=== PATIENT | male | born 1965 | race Caucasian/White ===

== ENCOUNTER 2016-10-19 16:23 | Inpatient (IN) | payer SELFPAY ==
[~2016-10-19] VITALS: Ht 195.6 cm; Wt 121.3 kg
[~2016-10-19 16:23] MED LIST: BACT800T5 PO; CEPH-460 PO; CLIN150 PO; NORC5TAB PO
[2016-10-19 16:26] VITALS: BP 148/83; PULSE 68; RESP 20; TEMP 98.1; O2SAT 96
[2016-10-19] MEDS ORDERED: LIDOCAINE 1%/EPINEPHrine 1:100,000 SOLN 20 ML VIAL INFIL ONE (18:15)
[2016-10-19] MEDS ORDERED: VANCOMYCIN INJ 1,000 MG in SODIUM CHLOR 0.9% 250 ML INJ 250 ML IV ONE (19:15)
--- NOTE | 2016-10-19 19:28 | PD ---
HPI Chief Complaint: Skin Problem Time Seen by Provider: 19:00 Travel History International Travel<30 days: No Contact w/Intl Traveler<30days: No Traveled to known affect area: No History of Present Illness HPI Patient is a 51-year-old male presenting with infection of the left hand and forearm. He states 5 days prior he had a small little area he thought was a antibiotic the left hand. He came in to be evaluated and was given Bactrim and Keflex. Progressively got worse over the next 2 days and he states abscess- like area formed over the outer aspect of the hand. He return here for wound check and denied he was performed and wound culture sent which is been negative. The Keflex was discontinued and place was patient on clindamycin. He has been taking this for about 36 hours. Reports some improvement but still the pain in the hand has worsened and the abscess is getting larger. He denies weakness or paresthesia or loss of range of motion in the extremity. He denies fever, chills, nausea and vomiting. He denies diabetes and immunocompromised states. Last tetanus given this week. PFSH Past Medical History Diminished Hearing: No Hypertension: Yes (RESOLVED) Sleep Apnea: Yes Past Surgical History Appendectomy: Yes Cholecystectomy: Yes Tonsillectomy: Yes Other Surgery: Yes (GASTRIC BYPASS.) Social History Alcohol Use: No Tobacco Use: No Substance Use: Yes (CANNABIS DAILY ) Allergies-Medications (Allergen,Severity, Reaction): Coded Allergies: No Known Allergies (Verified , 10/19/16) Reported Meds & Prescriptions Reported Meds & Active Scripts Active Eads (Hydrocodone-Acetaminophen) 5-325 mg Tab 1 Tab PO Q6H PRN Cleocin (Clindamycin HCl) 150 Mg Cap 150 Mg PO Q6H 7 Days Bactrim DS (Sulfamethoxazole-Trimethoprim) 800-160 Mg Tab 1 Tab PO BID Review of Systems Except as stated in HPI: all other systems reviewed are Neg Physical Exam Narrative GENERAL: Well-developed and well-nourished adult male in no acute distress. SKIN: Warm and dry. Good turgor without tenting. HEAD: Normocephalic and atraumatic. EYES: PERRL bilaterally, 5mm. EOMI bilaterally. No injection or icterus present. No proptosis. Lids without edema or erythema. ENT: Buccal mucosa pink and moist. Oropharynx free of erythema, tonsillar hypertrophy, masses, swelling, asymmetry and exudates. Uvula midline and airway patent. NECK: Supple, no meningeal signs. Trachea midline, no JVD. No cervical or facial lymphadenopathy. CARDIOVASCULAR: Regular rate and rhythm without murmurs, rubs, clicks or gallops. Radial pulses 2+ bilaterally. Capillary refill less than 2 seconds distal tip of all fingers of left hand. RESPIRATORY: Clear to auscultation bilaterally with symmetrical rise and fall, no distress or use of accessory muscles. GASTROINTESTINAL: Non-tender, non-distended. Normal bowel sounds all 4 quadrants. No masses or organomegaly present. MUSCULOSKELETAL: 6 cm ovoid area of erythema and warmth on the ulnar aspect of the dorsum of the left hand. There is some central fluctuance and surrounding induration. No spontaneous drainage or pointing. There is some associated cellulitis over the dorsum of the hand in the mid to distal forearm without edema. Some warmth in this area. Patient has no point tenderness at the left elbow, left wrist with a MTP joints of the fingers. He has full range of motion in the left elbow, wrist and all fingers of left hand. No gait disturbances. Patient freely moving all four extremities spontaneously. Extremities without clubbing, cyanosis, or edema. No obvious deformities. NEUROLOGIC: CN II-XII grossly intact. Awake and alert. Strength 5/5 bilateral elbow flexion, elbow extension, wrist flexion, wrist extension.Sensation intact and strength 5/5 over radial, median, and ulnar nerve distributions bilaterally. Normal speech. PSYCHIATRIC: Appropriate mood and affect; insight and judgment normal. Data Data Last Documented VS Vital Signs Date Time Temp Pulse Resp B/P Pulse Ox O2 Delivery O2 Flow Rate FiO2 10/19/16 16:26 98.1 68 20 148/83 96 Room Air Orders Wound Culture And Gram Stain (10/19/16 18:12) Lidocai-Epi 1%-1:100,000 Inj (Xylocaine- (10/19/16 18:15) Wound Care (10/19/16 18:12) Complete Blood Count With Diff (10/19/16 19:15) Comprehensive Metabolic Panel (10/19/16 19:15) Prothrombin Time / Inr (Pt) (10/19/16 19:15) Act Partial Throm Time (Ptt) (10/19/16 19:15) Lactic Acid Sepsis Protocol (10/19/16 19:15) Blood Culture (10/19/16 19:15) Vancomycin Inj (Vancomycin Inj) (10/19/16 19:15) Forearm (2vws) (10/19/16 19:29) Hand, Complete ([id number]) (10/19/16 19:29) Westergren Sedimentation Rate (10/19/16 19:29) C-Reactive Protein (Crp) (10/19/16 19:35) Admit Order (Ed Use Only) (10/19/16 21:02) Vancomycin Consult Pharmacy (Vancomycin (10/19/16 21:00) Cefepime Inj (Maxipime Inj) (10/19/16 21:00) Admit To Inpatient (10/19/16 ) Vital Signs (Adult) Q4H (10/19/16 21:00) Activity Oob Ad Zahira (10/19/16 21:00) Diet Regular Basic (10/20/16 Breakfast) Sodium Chloride 0.9% Flush (Ns Flush) (10/19/16 21:00) Sodium Chloride 0.9% Flush (Ns Flush) (10/19/16 21:00) Ondansetron Inj (Zofran Inj) (10/19/16 21:00) Bisacodyl Supp (Dulcolax Supp) (10/19/16 21:00) Comprehensive Metabolic Panel (10/20/16 06:00) Complete Blood Count With Diff (10/20/16 06:00) Scd Bilateral/Knee High SANKET.BID (10/19/16 21:00) Flynn Bilateral/Knee High SANKET.QSHIFT (10/19/16 21:00) Acetaminophen (Tylenol) (10/19/16 21:00) Acetamin-Hydrocod 325-5 Mg (Eads 5-325 (10/19/16 21:00) Morphine Inj (Morphine Inj) (10/19/16 21:00) Inpatient Certification (10/19/16 ) Labs Laboratory Tests Test 10/19/16 19:35 White Blood Count 6.9 TH/MM3 Red Blood Count 4.25 MIL/MM3 Hemoglobin 12.7 GM/DL Hematocrit 37.6 % Mean Corpuscular Volume 88.7 FL Mean Corpuscular Hemoglobin 29.9 PG Mean Corpuscular Hemoglobin 33.7 % Concent Red Cell Distribution Width 14.6 % Platelet Count 223 TH/MM3 Mean Platelet Volume 8.3 FL Neutrophils (%) (Auto) 70.6 % Lymphocytes (%) (Auto) 19.7 % Monocytes (%) (Auto) 7.7 % Eosinophils (%) (Auto) 1.5 % Basophils (%) (Auto) 0.5 % Neutrophils # (Auto) 4.9 TH/MM3 Lymphocytes # (Auto) 1.4 TH/MM3 Monocytes # (Auto) 0.5 TH/MM3 Eosinophils # (Auto) 0.1 TH/MM3 Basophils # (Auto) 0.0 TH/MM3 CBC Comment DIFF FINAL Differential Comment Erythrocyte Sedimentation Rate 20 mm/hr Prothrombin Time 10.8 SEC Prothromb Time International 1.0 RATIO Ratio Activated Partial 31.3 SEC Thromboplast Time Sodium Level 139 MEQ/L Potassium Level 3.7 MEQ/L Chloride Level 103 MEQ/L Carbon Dioxide Level 27.3 MEQ/L Anion Gap 9 MEQ/L Blood Urea Nitrogen 15 MG/DL Creatinine 0.68 MG/DL Estimat Glomerular Filtration 123 ML/MIN Rate Random Glucose 92 MG/DL Lactic Acid Level 0.8 mmol/L Calcium Level 8.8 MG/DL Total Bilirubin 0.4 MG/DL Aspartate Amino Transf 18 U/L (AST/SGOT) Alanine Aminotransferase 26 U/L (ALT/SGPT) Alkaline Phosphatase 81 U/L C-Reactive Protein 2.00 MG/DL Total Protein 7.2 GM/DL Albumin 3.6 GM/DL MDM Medical Decision Making Medical Screen Exam Complete: Yes Emergency Medical Condition: Yes Interpretation(s) Laboratory Tests Test 10/19/16 19:35 White Blood Count 6.9 TH/MM3 (4.0-11.0) Red Blood Count 4.25 MIL/MM3 (4.50-5.90) Hemoglobin 12.7 GM/DL (13.0-17.0) Hematocrit 37.6 % (39.0-51.0) Mean Corpuscular Volume 88.7 FL (80.0-100.0) Mean Corpuscular Hemoglobin 29.9 PG (27.0-34.0) Mean Corpuscular Hemoglobin 33.7 % Concent (32.0-36.0) Red Cell Distribution Width 14.6 % (11.6-17.2) Platelet Count 223 TH/MM3 (150-450) Mean Platelet Volume 8.3 FL (7.0-11.0) Neutrophils (%) (Auto) 70.6 % (16.0-70.0) Lymphocytes (%) (Auto) 19.7 % (9.0-44.0) Monocytes (%) (Auto) 7.7 % (0.0-8.0) Eosinophils (%) (Auto) 1.5 % (0.0-4.0) Basophils (%) (Auto) 0.5 % (0.0-2.0) Neutrophils # (Auto) 4.9 TH/MM3 (1.8-7.7) Lymphocytes # (Auto) 1.4 TH/MM3 (1.0-4.8) Monocytes # (Auto) 0.5 TH/MM3 (0-0.9) Eosinophils # (Auto) 0.1 TH/MM3 (0-0.4) Basophils # (Auto) 0.0 TH/MM3 (0-0.2) CBC Comment DIFF FINAL Differential Comment Erythrocyte Sedimentation Rate 20 mm/hr (0-20) Prothrombin Time 10.8 SEC (9.8-11.6) Prothromb Time International 1.0 RATIO Ratio Activated Partial 31.3 SEC Thromboplast Time (24.3-30.1) Sodium Level 139 MEQ/L (136-145) Potassium Level 3.7 MEQ/L (3.5-5.1) Chloride Level 103 MEQ/L (98-107) Carbon Dioxide Level 27.3 MEQ/L (21.0-32.0) Anion Gap 9 MEQ/L (5-15) Blood Urea Nitrogen 15 MG/DL (7-18) Creatinine 0.68 MG/DL (0.60-1.30) Estimat Glomerular Filtration 123 ML/MIN Rate (>89) Random Glucose 92 MG/DL (74-106) Lactic Acid Level 0.8 mmol/L (0.4-2.0) Calcium Level 8.8 MG/DL (8.5-10.1) Total Bilirubin 0.4 MG/DL (0.2-1.0) Aspartate Amino Transf 18 U/L (15-37) (AST/SGOT) Alanine Aminotransferase 26 U/L (12-78) (ALT/SGPT) Alkaline Phosphatase 81 U/L (45-117) C-Reactive Protein 2.00 MG/DL (0.00-0.30) Total Protein 7.2 GM/DL (6.4-8.2) Albumin 3.6 GM/DL (3.4-5.0) Last 24 hours Impressions Radius/Ulna X-Ray 10/19/161928 Signed Impressions: Service Date/Time: Wednesday, October 19, 2016 19:59 - CONCLUSION: Soft tissue swelling without fracture. Seth Pringle MD Hand X-Ray 10/19/161928 Signed Impressions: Service Date/Time: Wednesday, October 19, 2016 19:57 - CONCLUSION: Soft tissue swelling. No acute fracture. Seth Pringle MD Differential Diagnosis Failure of Outpatient therapy versus osteomyelitis versus Abscess versus cellulitis versus hematoma Narrative Course Patient is a 51-year-old male presenting to the third time in 5 days for a abscess and cellulitis of the left upper extremity. He is afebrile, nontoxic and has no systemic complaints. Despite being placed on Bactrim and Keflex earlier this has worsened. 2 days ago Keflex was discontinued and he was placed on Keflex after I&D and has had some improvement since but not substantially. Culture was negative. Patient is afebrile and nontoxic appearing. He is neurovascularly intact. Tetanus up-to-date. Incision and drainage was performed per attached procedure narrative, minimal pustular drainage however patient achieved significant relief. Wound culture was sent. Sent labs, lactic acid and blood cultures. CBCs shows WBC 6.9 with a mild leukocytosis without bands. H&H 12.7/37.6. Lactic acid 0.8. Sedimentation rate 20. CRP 2.0 which is down from 2 days prior at 4.20. X-ray shows soft tissue edema but no foreign bodies or bony lesions. Discussed the patient with Dr. Singh who evaluated and agrees patient should be admitted for failure of outpatient therapy. Report was given to Dr. Weaver who accepeted the admission. We discussed having her placed a consult for Dr. Barrientos but was not needed emergently. She recommended the patient come here but has not seen or evaluated the patient. She became involved because her colleague a space scheduler is a friend of the patient and called her personally. Within a few minutes of the admission call to Dr. Meg Barrientos did call here seeking the patient's status as she was in the OR last several hours. I explained situation to her and she will follow-up with him routinely. Procedures Procedure Narrative I&D LOCATION: Dorsum left hand SIZE: 6 cm ANESTHESIA: 1 Percent lidocaine with epi PROCEDURE: The abscess was prepped with Betadine and sterilely draped. The abscess was infiltrated with 2 cc of above anesthetic. Incision was made with a #11 blade with length of 2 cm and depth of 6 cm. Expressed mostly bloody material with scant purulence, approximately 7 mL. The wound was copiously irrigated and loculations were broken up. The wound was left open and covered with a sterile dressing. Packing was not done. The patient was advised to keep the dressing clean and dry. Patient tolerated the procedure well. Diagnosis Primary Impression: Hand abscess Additional Impressions: Cellulitis of upper extremity Qualified Code: L03.114 - Cellulitis of left upper extremity Failure of outpatient treatment Admitting Information Admitting Physician Requests: Admit Condition: Stable Collin Segal III Oct 19, 2016 19:28
[2016-10-19 20:03] LABS: APTT (PATIENT) 31.3 SEC (24.3-30.1); PROTHROMBIN TIME - PATIENT 10.8 SEC (9.8-11.6)
[2016-10-19 20:06] LABS: AUTOMATED NEUTROPHIL # 4.9 TH/MM3 (1.8-7.7); BASOPHIL % 0.5 % (0.0-2.0); EOSINOPHIL # 0.1 TH/MM3 (0-0.4); EOSINOPHIL % 1.5 % (0.0-4.0); HEMATOCRIT 37.6 % (39.0-51.0); HEMO FLAGS DIFF FINAL; LYMPH % 19.7 % (9.0-44.0); LYMPHOCYTE # 1.4 TH/MM3 (1.0-4.8); MEAN CELL VOLUME 88.7 FL (80.0-100.0); MEAN CORPUSCULAR HEMOGLOBIN 29.9 PG (27.0-34.0); MEAN CORPUSCULAR HGB CONC 33.7 % (32.0-36.0); MONO % 7.7 % (0.0-8.0); NEUT % 70.6 % (16.0-70.0); PLATELET COUNT 223 TH/MM3 (150-450); RED BLOOD COUNT 4.25 MIL/MM3 (4.50-5.90); RED CELL DISTRIBUTION WIDTH 14.6 % (11.6-17.2); WHITE BLOOD COUNT 6.9 TH/MM3 (4.0-11.0)
--- NOTE | 2016-10-19 20:08 | RADRPT ---
EXAM DATE/TIME: 10/19/2016 19:57 [facility] COMPARISON: No previous studies available for comparison. INDICATIONS : Swelling, pain, redness after bite/sting. MEDICAL HISTORY : None. SURGICAL HISTORY : None. ENCOUNTER: Initial ACUITY: 3 days PAIN SCORE: 10/10 LOCATION: Left Hand FINDINGS: Three view examination of the left hand demonstrates soft tissue swelling without dislocation, or fra cture. The carpal bones appear intact. The interphalangeal and metacarpophalangeal joints are inta ct. Bony mineralization is normal. CONCLUSION: Soft tissue swelling. No acute fracture. Seth Pringle MD on October 19, 2016 at 20:06 Board Certified Radiologist. This report was verified electronically.
--- NOTE | 2016-10-19 20:16 | RADRPT ---
EXAM DATE/TIME: 10/19/2016 19:59 [facility] COMPARISON: No previous studies available for comparison. INDICATIONS : Swelling, pain, redness following bite/sting. MEDICAL HISTORY : None. SURGICAL HISTORY : None. ENCOUNTER: Initial ACUITY: 3 days PAIN SCORE: 10/10 LOCATION: Left Forearm FINDINGS: Two view examination of the left forearm demonstrates no evidence of fracture or dislocation. Bony m ineralization is normal. Diffuse soft tissue swelling. CONCLUSION: Soft tissue swelling without fracture. Seth Pringle MD on October 19, 2016 at 20:14 Board Certified Radiologist. This report was verified electronically.
[2016-10-19 20:17] LABS: ANION GAP 9 MEQ/L (5-15); AST (GOT) 18 U/L (15-37); BICARBONATE 27.3 MEQ/L (21.0-32.0); BLOOD UREA NITROGEN 15 MG/DL (7-18); CHLORIDE 103 MEQ/L (98-107); GLOMERULAR FILTRATION RATE 123 ML/MIN (>89); POTASSIUM 3.7 MEQ/L (3.5-5.1); SODIUM (NA) 139 MEQ/L (136-145)
[2016-10-19 20:20] LABS: ALKALINE PHOSPHATASE 81 U/L (45-117); ALT (GPT) 26 U/L (12-78); TOTAL BILIRUBIN ADULT 0.4 MG/DL (0.2-1.0)
[2016-10-19] MEDS ORDERED: BISACODYL 10 MG SUPP PR PRN (21:00)
[2016-10-19] MEDS ORDERED: Vancomycin Consult Pharmacy 1 EA OTHER SCH (21:00)
[2016-10-19] MEDS ORDERED: SODIUM CHLORIDE 0.9% FLUSH 5 ML FLUSH FLUSH PRN (21:00)
[2016-10-19] MEDS ORDERED: MORPHINE SULFATE 4 MG/ML INJ IV PRN (21:00)
[2016-10-19] MEDS ORDERED: ACETAMINOPHEN 325 MG TAB PO PRN (21:00)
[2016-10-19] MEDS ORDERED: ONDANSETRON HCL 4 MG/2 ML VIAL IVP PRN (21:00)
--- NOTE | 2016-10-19 21:09 | HHI.HP ---
HPI Service [facility] Primary Care Physician No Primary Care Physician Admission Diagnosis L HAND ABSCESS/cellulitis Diagnoses: (1) Cellulitis of hand Diagnosis: Principal (2) Failure of outpatient treatment Diagnosis: Principal (3) HTN (hypertension) Diagnosis: Principal Travel History International Travel<30 Days: No Contact w/Intl Traveler <30 Da: No Traveled to Known Affected Are: No History of Present Illness This is a 51 year old male with a PMH of HTN who came to the ER with complaints of left hand swelling and pain after getting bitten by fire ant 5 days ago. Seen in Er on 10/15/16 for similar complaints, found to have left hand cellulitis and was d/c'd on Keflex 500mg po q8h and Bactrim DS po bid. Presented to ER again on 10/17/16 for same and was d/c'd w/ instructions to start Clinda 150mg q6h and to continue Bactrim. Returns today w/ no improvement. States friend is a Turn Out Worker and referred him to ER for eval w/ Hand Surgery. On arrival, BP 148/83, HR 68, O2 sat 96% on RA, Afebrile. WBC normal. Chemistry unremarkable. Hand X-ray was soft tissue swelling. Radius/ Ulna X-ray with soft tissue swelling, no fracture. S/p Vanc in ER. Review of Systems Other ROS: 14 point review of systems otherwise negative. Past Family Social History Past Medical History PMH: HTN Past Surgical History PAST SURGICAL HISTORY: Appendectomy, Cholecystectomy, Tonsillectomy, Gastric Bypass Allergies: Coded Allergies: No Known Allergies (Verified , 10/19/16) Family History PAST FAMILY HISTORY: Reviewed. No h/o DM or CAD Social History PAST SOCIAL HISTORY: Negative for alcohol or tobacco. Positive for Marijuana. Physical Exam Vital Signs Vital Signs Date Time Temp Pulse Resp B/P Pulse Ox O2 Delivery O2 Flow Rate FiO2 10/19/16 16:26 98.1 68 20 148/83 96 Room Air Physical Exam PE: GENERAL: Middle-aged male in no acute distress. HEENT: PERRLA, EOMI. No scleral icterus or conjunctival pallor. No lid lag or facial droop. CARDIOVASCULAR: Regular rate and rhythm. No obvious murmurs to auscultation. No chest tenderness to palpation. RESPIRATORY: No obvious rhonchi or wheezing. Clear to auscultation. Breath sounds equal bilaterally. GASTROINTESTINAL: Abdomen soft, non-tender, nondistended. BS normal. MUSCULOSKELETAL: Left hand +erythema, edema s/p I&D. Pulses intact NEUROLOGICAL: Awake, alert and oriented x4. No focal neurologic deficits. Moving both upper and lower extremities spontaneously. Laboratory Laboratory Tests Test 10/19/16 19:35 White Blood Count 6.9 Red Blood Count 4.25 Hemoglobin 12.7 Hematocrit 37.6 Mean Corpuscular Volume 88.7 Mean Corpuscular Hemoglobin 29.9 Mean Corpuscular Hemoglobin 33.7 Concent Red Cell Distribution Width 14.6 Platelet Count 223 Mean Platelet Volume 8.3 Neutrophils (%) (Auto) 70.6 Lymphocytes (%) (Auto) 19.7 Monocytes (%) (Auto) 7.7 Eosinophils (%) (Auto) 1.5 Basophils (%) (Auto) 0.5 Neutrophils # (Auto) 4.9 Lymphocytes # (Auto) 1.4 Monocytes # (Auto) 0.5 Eosinophils # (Auto) 0.1 Basophils # (Auto) 0.0 CBC Comment DIFF FINAL Differential Comment Erythrocyte Sedimentation Rate 20 Prothrombin Time 10.8 Prothromb Time International 1.0 Ratio Activated Partial 31.3 Thromboplast Time Sodium Level 139 Potassium Level 3.7 Chloride Level 103 Carbon Dioxide Level 27.3 Anion Gap 9 Blood Urea Nitrogen 15 Creatinine 0.68 Estimat Glomerular Filtration 123 Rate Random Glucose 92 Lactic Acid Level 0.8 Calcium Level 8.8 Total Bilirubin 0.4 Aspartate Amino Transf 18 (AST/SGOT) Alanine Aminotransferase 26 (ALT/SGPT) Alkaline Phosphatase 81 C-Reactive Protein 2.00 Total Protein 7.2 Albumin 3.6 Date/Time Procedure Status Source Growth 10/19/16 19:35 Aerobic Blood Culture Received Blood Peripheral Pending 10/19/16 19:35 Anaerobic Blood Culture Received Blood Peripheral Pending 10/19/16 19:13 Gram Stain Received Wound Hand Pending 10/19/16 19:13 Wound Culture Received Wound Hand Pending Result Diagram: 10/19/16193410/19/161934 Assessment and Plan Problem List: (1) Cellulitis of hand ICD Code: L03.119 Status: Acute (2) Failure of outpatient treatment ICD Code: Z78.9 Status: Acute (3) HTN (hypertension) ICD Code: I10 Status: Acute Assessment and Plan A/P: 1. Left Hand Cellulitis/Abscess: s/p I&D in ER, previous I&D w/ negative cultures. s/p Vanc in ER. Will continue w/ IV Abx, follow up cultures. ER physician spoke w/ Dr. Barrientos, will evaluate in am. 2. Failed Outpt Tx: S/p Keflex/Bactrim 10/15/16, later switched to Bactrim/ Clinda w/ no improvement. S/p Vanc in ER, will continue w/ Vanc/Cefepime IV. 3. HTN: Controlled. Monitor BP. 4. DVT Prophylaxis: SCD/Teds. 5. Social work for d/c planning as needed. 6. Case discussed w/ ER physician at length. Physician Certification 2 Midnight Certification Type: Admission for Inpatient Services Order for Inpatient Services The services are ordered in accordance with Medicare regulations or non- Medicare payer requirements, as applicable. In the case of services not specified as inpatient-only, they are appropriately provided as inpatient services in accordance with the 2-midnight benchmark. Estimated LOS (days): 2 days is the estimated time the patient will need to remain in the hospital, assuming treatment plan goals are met and no additional complications. Post-Hospital Plan: Home Berenice Weaver MD Oct 19, 2016 21:09
[2016-10-19 21:27] VITALS: BP 127/79; PULSE 52; RESP 18; O2SAT 95
[2016-10-19] MEDS ORDERED: VANCOMYCIN 1,000 MG/NS 250 ML IV ONE ×2 (22:00)
[2016-10-19] MEDS: ACETAMINOPHEN/HYDROcodone 325 MG/5 MG TAB PO PRN (23:47)
[2016-10-19] MEDS: CEFEPIME INJ 1,000 MG in SODIUM CHLORIDE 0.9% INJ 100 ML IV SCH (23:48)
[2016-10-20] VITALS: BP 129/80; PULSE 55; RESP 17; TEMP 96.6; O2SAT 98
[2016-10-20 04:00] VITALS: BP 123/81; PULSE 50; RESP 16; TEMP 97.1; O2SAT 96
[2016-10-20 08:00] VITALS: BP 123/78; PULSE 55; RESP 16; TEMP 97.1; O2SAT 97
[2016-10-20] MEDS: SODIUM CHLORIDE 0.9% FLUSH 5 ML FLUSH FLUSH SCH ×3 (09:14→20:30)
[2016-10-20] MEDS: VANCOMYCIN INJ 2,000 MG in SODIUM CHLORID 0.9% 500 ML INJ 500 ML IV SCH ×2 (09:14→20:28)
--- NOTE | 2016-10-20 11:27 | HHI.PR ---
Subjective Remarks Patient admitted with left hand cellulitis/abscess s/p I&D in the ED He reports that the swelling and redness has improved since yesterday. He would like to go home if ok with hand surgeon. Objective Vitals Vital Signs Date Time Temp Pulse Resp B/P Pulse Ox O2 Delivery O2 Flow Rate FiO2 10/20/16 08:00 97.1 55 16 123/78 97 10/20/16 04:00 97.1 50 16 123/81 96 10/20/16 01:16 19 10/20/16 00:00 96.6 55 17 129/80 98 10/19/16 21:27 52 18 127/79 95 Room Air 10/19/16 16:26 98.1 68 20 148/83 96 Room Air I/O 10/19/16 10/19/16 10/19/16 10/20/16 10/20/16 10/20/16 06:59 14:59 22:59 06:59 14:59 22:59 Intake Total 240 ml Balance 240 ml Intake Oral 240 ml # Voids 1 # Bowel Movements 0 Result Diagram: 10/19/16193410/19/161934 Imaging Last Impressions Radius/Ulna X-Ray 10/19/161928 Signed Impressions: Service Date/Time: Wednesday, October 19, 2016 19:59 - CONCLUSION: Soft tissue swelling without fracture. Seth Pringle MD Hand X-Ray 10/19/161928 Signed Impressions: Service Date/Time: Wednesday, October 19, 2016 19:57 - CONCLUSION: Soft tissue swelling. No acute fracture. Seth Pringle MD Objective Remarks GENERAL: This is a well-nourished, well-developed patient, in no apparent distress. SKIN: Left dorsum of the hand on the lateral side there is some redness and swelling. Incision looks clean. Improving per the patient. CARDIOVASCULAR: Regular rate and rhythm without murmurs, gallops, or rubs. RESPIRATORY: Clear to auscultation. Breath sounds equal bilaterally. No wheezes , rales, or rhonchi. GASTROINTESTINAL: Abdomen soft, non-tender, nondistended. Normal active bowel sounds MUSCULOSKELETAL: Extremities without clubbing, cyanosis, or edema. NEURO: Alert & Oriented x4 to person, place, time, situation. Moves all ext x4 A/P Problem List: (1) Cellulitis of hand ICD Code: L03.119 Status: Acute (2) Failure of outpatient treatment ICD Code: Z78.9 Status: Acute (3) HTN (hypertension) ICD Code: I10 Status: Acute Assessment and Plan 51-year-old male with: Left Hand Cellulitis/Abscess: s/p I&D in ER, previous I&D w/ negative cultures. s/p Vanc in ER. Awaiting evaluation from hand surgery, there does not appear to be joint involvement. If cleared by hand surgery today he may be able to go home to continue on oral antibiotics. He is improving. HTN: Controlled. Monitor BP. DVT Prophylaxis: SCD/Teds. Nahid King MD Oct 20, 2016 11:26
[2016-10-20] MEDS: CEFEPIME INJ 1,000 MG in SODIUM CHLORIDE 0.9% INJ 100 ML IV SCH ×2 (11:30→22:40)
[2016-10-20 12:00] VITALS: BP 127/78; PULSE 50; RESP 16; TEMP 97.4; O2SAT 97
[2016-10-20 12:04] LABS: BASOPHIL % 0.8 % (0.0-2.0); EOSINOPHIL # 0.2 TH/MM3 (0-0.4); EOSINOPHIL % 3.6 % (0.0-4.0); HEMATOCRIT 36.8 % (39.0-51.0); HEMO FLAGS DIFF FINAL; LYMPH % 26.8 % (9.0-44.0); LYMPHOCYTE # 1.4 TH/MM3 (1.0-4.8); MEAN CELL VOLUME 88.9 FL (80.0-100.0); MEAN CORPUSCULAR HEMOGLOBIN 29.5 PG (27.0-34.0); MEAN CORPUSCULAR HGB CONC 33.1 % (32.0-36.0); MONO % 10.2 % (0.0-8.0); NEUT % 58.6 % (16.0-70.0); PLATELET COUNT 207 TH/MM3 (150-450); RED BLOOD COUNT 4.14 MIL/MM3 (4.50-5.90); RED CELL DISTRIBUTION WIDTH 14.4 % (11.6-17.2); WHITE BLOOD COUNT 5.2 TH/MM3 (4.0-11.0)
[2016-10-20 12:31] LABS: ALKALINE PHOSPHATASE 74 U/L (45-117); ALT (GPT) 22 U/L (12-78); ANION GAP 10 MEQ/L (5-15); AST (GOT) 13 U/L (15-37); BICARBONATE 25.1 MEQ/L (21.0-32.0); BLOOD UREA NITROGEN 10 MG/DL (7-18); CHLORIDE 106 MEQ/L (98-107); GLOMERULAR FILTRATION RATE 134 ML/MIN (>89); SODIUM (NA) 141 MEQ/L (136-145); TOTAL BILIRUBIN ADULT 0.7 MG/DL (0.2-1.0)
[2016-10-20 16:00] VITALS: BP 126/74; PULSE 53; RESP 16; TEMP 98.2; O2SAT 98
--- NOTE | 2016-10-20 18:57 | PD.ORT.PN ---
Subjective Subjective Remarks See dicatated consult note Objective Vitals Vital Signs Date Time Temp Pulse Resp B/P Pulse Ox O2 Delivery O2 Flow Rate FiO2 10/20/16 16:00 98.2 53 16 126/74 98 10/20/16 12:00 97.4 50 16 127/78 97 10/20/16 08:00 97.1 55 16 123/78 97 10/20/16 04:00 97.1 50 16 123/81 96 10/20/16 01:16 19 10/20/16 00:00 96.6 55 17 129/80 98 10/19/16 21:27 52 18 127/79 95 Room Air I/O 10/19/16 10/19/16 10/19/16 10/20/16 10/20/16 10/20/16 06:59 14:59 22:59 06:59 14:59 22:59 Intake Total 240 ml 720 ml Balance 240 ml 720 ml Intake Oral 240 ml 720 ml # Voids 1 4 # Bowel Movements 0 1 Result Diagram: 10/20/16 1102 10/20/16 1102 Other Results Laboratory Tests Test 10/19/16 19:35 Prothrombin Time 10.8 SEC (9.8-11.6) Prothromb Time International 1.0 RATIO Ratio Imaging Last 24 hours Impressions Radius/Ulna X-Ray 10/19/161928 Signed Impressions: Service Date/Time: Wednesday, October 19, 2016 19:59 - CONCLUSION: Soft tissue swelling without fracture. Seth Pringle MD Hand X-Ray 10/19/161928 Signed Impressions: Service Date/Time: Wednesday, October 19, 2016 19:57 - CONCLUSION: Soft tissue swelling. No acute fracture. Seth Pringle MD Assessment & Plan Assessment and Plan 51yM s/p gastric bypass with abscess dorsum left hand s/p I&D in ER -Recommend continued admission for IV Ab, consultation infectious disease -Likely d/c on oral antibiotics with close followup, likely followup Tue in office Melonie Barrientos MD Oct 20, 2016 18:57
--- NOTE | 2016-10-20 19:12 | MB ---
cc: CHRISTIANO AGUAYO MD DATE OF CONSULTATION: 10/20/2016. REASON FOR CONSULTATION: Cellulitis left hand. HISTORY OF PRESENT ILLNESS: Hemal Velarde is a pleasant 51-year-old right-hand dominant male whose past medical history is significant for gastric bypass. He states that approximately six days ago he had an ant bite to the dorsal aspect of the left hand at the level of the metacarpal. He presented to [facility] and was given a prescription for Bactrim and Keflex and discharged. He states he had worsening pain, erythema and swelling and re-presented to the emergency room and was transitioned to clindamycin and discharge. I was called yesterday by one of his friends who is a colleague after the patient states he had worsening pain and swelling and he was again referred to the emergency room. He was evaluated in the emergency room as I was at another hospital and they performed incision and drainage of the abscess and sent cultures. The patient was admitted for IV antibiotics. On evaluation today, the patient states he has had significant improvement in his pain and swelling. He denies any paresthesias. PAST MEDICAL HISTORY: His past medical history is significant for: 1. Hypertension. 2. Sleep apnea. PAST SURGICAL HISTORY: 1. Gastric bypass. 2. Tonsillectomy. 3. Cholecystectomy. 4. Appendectomy. SOCIAL HISTORY: Significant for marijuana. Denies alcohol or tobacco use. MEDICATIONS: Clindamycin and Bactrim currently. ALLERGIES: NO KNOWN DRUG ALLERGIES. PHYSICAL EXAMINATION: Exam of the left hand shows an area of erythema over the dorsum of the left hand again at the level of the metacarpal. There is approximately a 1-cm open area with no evidence of purulence. The patient has full extension and flexion of the fingers. Sensation intact in the ulnar distribution 2+ radial pulses. No pain with passive range of motion of the wrist. LABORATORY DATA: White count 6.9. Erythrocyte sedimentation rate 20. C-reactive protein 2. Cultures from the emergency room positive for Staph aureus. No specificity at this time. IMAGING STUDIES: X-rays taken show no evidence of fracture or evidence of osteomyelitis. ASSESSMENT AND PLAN: A very pleasant 51-year-old right-hand dominant male, friend of Dr. Todd, status post gastric bypass with an approximately one week history of an abscess on the dorsum of the left hand after a an ant bite per the patient. At this point, I recommend that continued admission for IV antibiotics, continued dressing changes and I will see the patient tomorrow. I will likely follow him in the office as this resolves. At this time, no indication for repeat surgical intervention. MD JOSTIN Veliz/DOM /6:54 PM /7:05 PM GALO
[2016-10-20 20:00] VITALS: BP 132/74; PULSE 55; RESP 17; TEMP 98; O2SAT 98
[2016-10-20] MEDS: ACETAMINOPHEN/HYDROcodone 325 MG/5 MG TAB PO PRN (22:39)
[2016-10-21] VITALS: BP 128/76; PULSE 51; RESP 16; TEMP 97; O2SAT 96
[2016-10-21 04:00] VITALS: BP 123/73; PULSE 52; RESP 16; TEMP 96.3; O2SAT 96
[2016-10-21] MEDS: ACETAMINOPHEN/HYDROcodone 325 MG/5 MG TAB PO PRN (04:22)
[2016-10-21 08:00] VITALS: BP 118/82; PULSE 50; RESP 16; TEMP 96.9; O2SAT 96
[2016-10-21] MEDS ORDERED: PHARMACY ORDERED LAB XX ONE (08:45)
[2016-10-21] MEDS: SODIUM CHLORIDE 0.9% FLUSH 5 ML FLUSH FLUSH SCH ×2 (09:19→21:47)
[2016-10-21] MEDS: VANCOMYCIN INJ 2,000 MG in SODIUM CHLORID 0.9% 500 ML INJ 500 ML IV SCH ×2 (09:47→21:46)
[2016-10-21 12:00] VITALS: BP 125/77; PULSE 50; RESP 16; TEMP 97.9; O2SAT 96
[2016-10-21] MEDS: CEFEPIME INJ 1,000 MG in SODIUM CHLORIDE 0.9% INJ 100 ML IV SCH (13:30)
[2016-10-21 16:00] VITALS: BP 121/74; PULSE 49; RESP 16; TEMP 97.5; O2SAT 98
--- NOTE | 2016-10-21 16:10 | HHI.PR ---
Subjective Remarks patient seen in follow up for left hand abscess; greatly improved pain, erythema and edema per patient Objective Vitals Vital Signs Date Time Temp Pulse Resp B/P Pulse Ox O2 Delivery O2 Flow Rate FiO2 10/21/16 12:00 97.9 50 16 125/77 96 10/21/16 08:00 96.9 50 16 118/82 96 10/21/16 06:00 20 10/21/16 04:00 96.3 52 16 123/73 96 10/21/16 00:00 97.0 51 16 128/76 96 10/20/16 20:00 98.0 55 17 132/74 98 I/O 10/20/16 10/20/16 10/20/16 10/21/16 10/21/16 10/21/16 06:59 14:59 22:59 06:59 14:59 22:59 Intake Total 240 ml 1485 ml 480 ml 650 ml Output Total 900 ml Balance 240 ml 1485 ml -420 ml 650 ml Intake Oral 240 ml 1200 ml 480 ml IV Total 285 ml 650 ml Output Urine Total 900 ml # Voids 1 5 # Bowel Movements 0 1 Result Diagram: 10/20/16 1102 10/20/16 1102 Objective Remarks GENERAL: This is a well-nourished, well-developed patient, in no apparent distress. CARDIOVASCULAR: Regular rate and rhythm without murmurs, gallops, or rubs. RESPIRATORY: Clear to auscultation. Breath sounds equal bilaterally. No wheezes , rales, or rhonchi. GASTROINTESTINAL: Abdomen soft, non-tender, nondistended. Normal active bowel sounds MUSCULOSKELETAL: left hand soft tissue swelling improved; other 3 Extremities without clubbing, cyanosis, or edema. NEURO: Alert & Oriented x4 to person, place, time, situation. Moves all ext x4 A/P Problem List: (1) Cellulitis of hand ICD Code: L03.119 Status: Acute Plan: Continue vancomycin and cefepime for now, follow-up ID recommendations Discharge Planning Primary discharge 1-2 days pending ID clearance Deysi Lockwood MD Oct 21, 2016 16:10
--- NOTE | 2016-10-21 18:47 | PD.ID.CON ---
History of Present Illness Service ID Consult Requested By Dr Barrientos Reason for Consult L hand MRSA infx Primary Care Physician No Primary Care Physician Diagnoses: History of Present Illness 51 yo male with h/o gastric bypas ovw unremarkbale pesetrnwith 1 week h/o swollen, tender painful lesion on L hand Initially reports a fire ant bite. Next 2 days pogressive swlling and pain S/p Bactrim tx o/p - failed, then switched to clindamycin (also failed) Improved after b/s I+D in ER was done 2 days ago and IV vanco started Denies fever, chills, night sweats No other complaints Hand surgeon follows but no plans for additional surgeries as of now Review of Systems Other as per history of present illness, the rest of 12 point review is negative Past Family Social History Allergies: Coded Allergies: No Known Allergies (Verified , 10/19/16) Past Medical History HTN, obesity Past Surgical History Appendectomy, Cholecystectomy, Tonsillectomy, Gastric Bypass Active Ordered Medications Medications where reviewed in EMR Antibiotics Include: vancomycin cefepime Family History Reviewed. No h/o DM or CAD Social History No ETOH Negative for alcohol or tobacco. Positive for Marijuana. Physical Exam Vital Signs Vital Signs Date Time Temp Pulse Resp B/P Pulse Ox O2 Delivery O2 Flow Rate FiO2 10/21/16 16:00 97.5 49 16 121/74 98 10/21/16 12:00 97.9 50 16 125/77 96 10/21/16 08:00 96.9 50 16 118/82 96 10/21/16 06:00 20 10/21/16 04:00 96.3 52 16 123/73 96 10/21/16 00:00 97.0 51 16 128/76 96 10/20/16 20:00 98.0 55 17 132/74 98 Physical Exam CONSTITUTIONAL/GENERAL: This is an adequately nourished patient, in no apparent distress. SKIN: No jaundice, rashes, or lesions. Skin temperature appropriate. Not diaphoretic. HEAD: Atraumatic. Normocephalic. EYES: Pupils equal and round and reactive. Extraocular motions intact. No scleral icterus. No injection or drainage. Fundi not examined. ENT: Hearing grossly normal. Nose without bleeding or purulent drainage. Oral mucosae without visible erythema, exudates, masses, or lesions. NECK: Trachea midline. Supple, nontender. CARDIOVASCULAR: Regular rate and rhythm without murmurs, gallops, or rubs. well perfused periphery. RESPIRATORY/CHEST: Symmetric, unlabored respirations. Clear to auscultation. Breath sounds equal bilaterally. No wheezes, rales, or rhonchi. GASTROINTESTINAL: Abdomen soft, non-tender, nondistended. No hepato-splenomegaly , or palpable masses. No guarding. Bowel sounds present. GENITOURINARY: Without palpable bladder distension. MUSCULOSKELETAL: Extremities without clubbing, cyanosis, or edema. L hand with some edema and erythema on the dorsal lateral aspect Wound is open draining minimal amount of odorless pus No fluctuance Mild tenderness to palpation NO ascending lymphangitis and lymphadenopathy Fine wrinkling present cw diminishing edema LYMPHATICS: No palpable cervical axillar or supraclavicular adenopathy. NEUROLOGICAL: Awake and alert. Motor and sensory grossly within normal limits. Follows commands. Normal speech. Moves all extremities. PSYCHIATRIC: No obvious anxiety/depression. no apparent hallucinations or other psychotic thought process. Laboratory Laboratory Tests Test 10/21/16 09:47 Vancomycin Level Trough 14.0 Date/Time Procedure Status Source Growth 10/19/16 19:35 Aerobic Blood Culture - Preliminary Resulted Blood Peripheral NO GROWTH IN 2 DAYS 10/19/16 19:35 Anaerobic Blood Culture - Preliminary Resulted Blood Peripheral NO GROWTH IN 2 DAYS 10/19/16 19:13 Gram Stain - Final Complete Wound Hand 10/19/16 19:13 Wound Culture - Final Complete S. Aureus Mrsa Result Diagram: 10/20/16 1102 10/20/16 1102 Imaging Last Impressions Radius/Ulna X-Ray 10/19/161928 Signed Impressions: Service Date/Time: Wednesday, October 19, 2016 19:59 - CONCLUSION: Soft tissue swelling without fracture. Seth Pringle MD Hand X-Ray 10/19/161928 Signed Impressions: Service Date/Time: Wednesday, October 19, 2016 19:57 - CONCLUSION: Soft tissue swelling. No acute fracture. Seth Pringle MD Assessment and Plan Assessment and Plan L hand abscess, cellulitis, MRSA - S reviewed; S to bactrim, doxy clinda Failed oral abx as o/p sp b/s I+D Improving No signs of systemic infx (afebrile, nl WBC, no bacteremia) - cont vancomycin x 1 more day - if cont to improve dc home with oral clindamicin 300 mg PO QID for 10 more days Pili Shepherd MD Oct 21, 2016 18:47
[2016-10-21 20:00] VITALS: BP 144/92; PULSE 54; RESP 18; TEMP 97.5; O2SAT 97
[2016-10-22] VITALS: BP 139/90; PULSE 68; RESP 18; TEMP 97.9; O2SAT 97
[2016-10-22 04:00] VITALS: BP 148/88; PULSE 78; RESP 18; TEMP 96.8; O2SAT 95
[2016-10-22] MEDS ORDERED: CLIN1CAP6 PO (07:21)
--- NOTE | 2016-10-22 07:22 | HHI.DCPOC ---
Discharge Care Plan Diagnosis: (1) Cellulitis of hand Goals to Promote Your Health * To prevent worsening of your condition and complications * To maintain your health at the optimal level Directions to Meet Your Goals Take your medications as prescribed Follow your dietary instruction Follow activity as directed Keep your appointments as scheduled Take your immunizations and boosters as scheduled If your symptoms worsen call your PCP, if no PCP go to Urgent Care Center or Emergency Room Smoking is Dangerous to Your Health. Avoid second hand smoke Call the 24-hour hour crisis hotline for domestic abuse at Deysi Lockwood MD Oct 22, 2016 07:22
[2016-10-22 08:39] VITALS: BP 128/80; PULSE 48; RESP 20; TEMP 97.5; O2SAT 97
--- NOTE | 2016-10-22 08:52 | HHI.DS ---
Discharge Summary Admission Date Oct 19, 2016 at 21:04 Discharge Date: Oct 22, 2016 Admitting Diagnosis L HAND ABSCESS/cellulitis (1) Cellulitis of hand ICD Code: L03.119 Procedures None Brief History - From Admission This is a 51 year old male with a PMH of HTN who came to the ER with complaints of left hand swelling and pain after getting bitten by fire ant 5 days ago. Seen in Er on 10/15/16 for similar complaints, found to have left hand cellulitis and was d/c'd on Keflex 500mg po q8h and Bactrim DS po bid. Presented to ER again on 10/17/16 for same and was d/c'd w/ instructions to start Clinda 150mg q6h and to continue Bactrim. Returns today w/ no improvement. States friend is a [employer] and referred him to ER for eval w/ Hand Surgery. On arrival, BP 148/83, HR 68, O2 sat 96% on RA, Afebrile. WBC normal. Chemistry unremarkable. Hand X-ray was soft tissue swelling. Radius/ Ulna X-ray with soft tissue swelling, no fracture. S/p Vanc in ER. CBC/BMP: 10/20/16 1102 10/20/16 1102 Significant Findings Laboratory Tests Test 10/19/16 10/20/16 10/21/16 19:35 11:02 09:47 Red Blood Count 4.25 MIL/MM3 4.14 MIL/MM3 (4.50-5.90) (4.50-5.90) Hemoglobin 12.7 GM/DL 12.2 GM/DL (13.0-17.0) (13.0-17.0) Hematocrit 37.6 % 36.8 % (39.0-51.0) (39.0-51.0) Neutrophils (%) (Auto) 70.6 % (16.0-70.0) Activated Partial 31.3 SEC Thromboplast Time (24.3-30.1) C-Reactive Protein 2.00 MG/DL (0.00-0.30) Monocytes (%) (Auto) 10.2 % (0.0-8.0) Random Glucose 125 MG/DL (74-106) Aspartate Amino Transf 13 U/L (15-37) (AST/SGOT) Albumin 3.2 GM/DL (3.4-5.0) Vancomycin Level Trough 14.0 MCG/ML (5.0-10.0) PE at Discharge GENERAL: This is a well-nourished, well-developed patient, in no apparent distress. CARDIOVASCULAR: Regular rate and rhythm without murmurs, gallops, or rubs. RESPIRATORY: Clear to auscultation. Breath sounds equal bilaterally. No wheezes , rales, or rhonchi. GASTROINTESTINAL: Abdomen soft, non-tender, nondistended. Normal active bowel sounds MUSCULOSKELETAL: left hand soft tissue swelling improved; other 3 Extremities without clubbing, cyanosis, or edema. NEURO: Alert & Oriented x4 to person, place, time, situation. Moves all ext x4 Pt update on day of discharge Discharge plans discussed with patient, RN. NO events overnight Hospital Course Patient was seen and treated for a left hand cellulitis which resolved with antibiotics. Patient was consulted by infectious disease and by hand surgery. No surgical indications were needed in the patient's infection cleared quite rapidly with IV antibiotics. Cultures showed MRSA Pt Condition on Discharge: Good Discharge Disposition: Discharge Home Discharge Time: > 30 minutes Discharge Instructions DIET: Follow Instructions for: As Tolerated, No Restrictions Activities you can perform: Regular-No Restrictions New Medications: Clindamycin (Clindamycin) 300 Mg Cap 300 MG PO TID Infection #31 Ref 0 CAP Continued Medications: Hydrocodone-Acetaminophen ([place]) 5-325 mg Tab 1 TAB PO Q6H PRN PAIN #20 Ref 0 TAB Discontinued Medications: Clindamycin (Cleocin) 150 Mg Cap 150 MG PO Q6H Infection Days 7 Ref 0 CAP Sulfamethoxazole-Trimethoprim (Bactrim DS) 800-160 Mg Tab 1 TAB PO BID Infection #20 Ref 0 TAB Deysi Lockwood MD Oct 22, 2016 08:52
== END 2016-10-22 08:52 | disposition home or self-care (01) | DRG 603 ==
LOC: NEPE 16:23 → NEDA 21:04 → HOCA 23:35
PROVIDERS: ADMIT Hospitalist; ATTEND Hospitalist
PROC: 0H9GXZZ Drainage of Left Hand Skin, External Approach (ICD-10-PCS; principal; 2016-10-19)
DX: L02.512 Cutaneous abscess of left hand (principal); I10 Essential (primary) hypertension; L03.114 Cellulitis of left upper limb; B95.62 Methicillin resistant Staphylococcus aureus infection as the cause of diseases classified elsewhere; S60.562A Insect bite (nonvenomous) of left hand, initial encounter; W57.XXXA Bitten or stung by nonvenomous insect and other nonvenomous arthropods, initial encounter; Z98.84 Bariatric surgery status; G47.30 Sleep apnea, unspecified; F12.90 Cannabis use, unspecified, uncomplicated; E66.9 Obesity, unspecified; Z68.31 Body mass index [BMI] 31.0-31.9, adult
CPT/HCPCS: 10060; 73090; 73130; 80053; 80202; 83605; 85025; 85610; 85652; 85730; 86140; 86403; 87040; 87070; 87147; 87186; 87205; 96374; J0692; J3370; J7040; J7050

== ENCOUNTER 2017-03-16 12:51 | Emergency (ER) | payer OTHER ==
[~2017-03-16] VITALS: Ht 195.6 cm; Wt 112.0 kg
[~2017-03-16 12:51] MED LIST changes: -BACT800T5 PO; -CEPH-460 PO; -CLIN150 PO; +CLIN1CAP6 PO
[2017-03-16 12:53] VITALS: BP 150/95; PULSE 80; RESP 16; TEMP 98.2; O2SAT 99
--- NOTE | 2017-03-16 13:15 | PD ---
HPI Chief Complaint: Skin Problem Time Seen by Provider: 13:09 Travel History International Travel<30 days: No Contact w/Intl Traveler<30days: No Traveled to known affect area: No History of Present Illness HPI 52-year-old male presents to emergency Department with complaint of a lump to the back of his left scalp that started 2 days ago. Denies fever or vomiting. Says the area is tender. Has not taken any medications or tried any treatments to relieve the symptoms. No known allergies. Has no other medical complaints. No other modifying factors or associated signs and symptoms. PFSH Past Medical History Medical History: Denies Significant Hx Autoimmune Disease: No Cancer: No Cardiovascular Problems: No Chemotherapy: No Diminished Hearing: No Endocrine: No Genitourinary: No Hypertension: Yes (RESOLVED) Immune Disorder: No Kidney Stones: Yes Musculoskeletal: No Neurologic: No Psychiatric: No Reproductive: No Respiratory: No Radiation Therapy: No Sleep Apnea: Yes Tetanus Vaccination: < 5 Years Past Surgical History Appendectomy: Yes Cardiac Surgery: No Cholecystectomy: Yes Ear Surgery: No Endocrine Surgery: No Eye Surgery: No Genitourinary Surgery: No Gynecologic Surgery: No Oral Surgery: No Thoracic Surgery: No Tonsillectomy: Yes Other Surgery: Yes (GASTRIC BYPASS.) Social History Alcohol Use: Yes Tobacco Use: No Substance Use: Yes (MARIJUANA) Allergies-Medications (Allergen,Severity, Reaction): Coded Allergies: *MDRO Multi-Drug Resistant Organism (Verified Adverse Reaction, Unknown, ) MRSA (hand-10/19/16) Reported Meds & Prescriptions Reported Meds & Active Scripts Active Amoxicillin 500 Mg Cap 500 Mg PO TID 7 Days Review of Systems Except as stated in HPI: all other systems reviewed are Neg Physical Exam Narrative GENERAL: Well-nourished, well-developed male patient, in no acute distress; afebrile, nontoxic-appearing SKIN: There is soft, mass to the posterior left scalp that measures approximately 7 cm x 4 cm.. It is fluctuant but there is no pointing or drainage. The area is without erythema. Areas without tenderness on palpation. No surrounding lymphadenopathy noted. HEAD: Atraumatic. Normocephalic. EYES: Pupils equal and round. No scleral icterus. No injection or drainage. ENT: Mucosa pink and moist. Airway patent. NECK: Trachea midline. CARDIOVASCULAR: Regular rate. RESPIRATORY: No accessory muscle use. GASTROINTESTINAL: Rounded. MUSCULOSKELETAL: No obvious deformities. No clubbing. No cyanosis. No edema. NEUROLOGICAL: Awake and alert. Oriented 3. No obvious cranial nerve deficits. Motor grossly within normal limits. Normal speech. PSYCHIATRIC: Appropriate mood and affect; insight and judgment normal. Data Data Last Documented VS Vital Signs Date Time Temp Pulse Resp B/P Pulse Ox O2 Delivery O2 Flow Rate FiO2 03/16/17 12:53 98.2 80 16 150/95 99 Orders Isolation 08,20 (03/16/17 13:25) Complete Blood Count With Diff (03/16/17 13:39) Comprehensive Metabolic Panel (03/16/17 13:39) Ct Soft Tiss Neck W Iv Cont (03/16/17 ) Iohexol 350 Inj (Omnipaque 350 Inj) (03/16/17 14:39) Labs Laboratory Tests Test 03/16/17 13:45 White Blood Count 9.8 TH/MM3 Red Blood Count 4.17 MIL/MM3 Hemoglobin 12.5 GM/DL Hematocrit 36.7 % Mean Corpuscular Volume 88.2 FL Mean Corpuscular Hemoglobin 30.0 PG Mean Corpuscular Hemoglobin 34.0 % Concent Red Cell Distribution Width 14.8 % Platelet Count 204 TH/MM3 Mean Platelet Volume 8.4 FL Neutrophils (%) (Auto) 79.9 % Lymphocytes (%) (Auto) 10.4 % Monocytes (%) (Auto) 7.9 % Eosinophils (%) (Auto) 1.5 % Basophils (%) (Auto) 0.3 % Neutrophils # (Auto) 7.8 TH/MM3 Lymphocytes # (Auto) 1.0 TH/MM3 Monocytes # (Auto) 0.8 TH/MM3 Eosinophils # (Auto) 0.1 TH/MM3 Basophils # (Auto) 0.0 TH/MM3 CBC Comment DIFF FINAL Differential Comment Sodium Level 143 MEQ/L Potassium Level 4.0 MEQ/L Chloride Level 108 MEQ/L Carbon Dioxide Level 27.9 MEQ/L Anion Gap 7 MEQ/L Blood Urea Nitrogen 14 MG/DL Creatinine 0.60 MG/DL Estimat Glomerular Filtration 141 ML/MIN Rate Random Glucose 97 MG/DL Calcium Level 8.6 MG/DL Total Bilirubin 0.7 MG/DL Aspartate Amino Transf 18 U/L (AST/SGOT) Alanine Aminotransferase 23 U/L (ALT/SGPT) Alkaline Phosphatase 73 U/L Total Protein 6.4 GM/DL Albumin 3.4 GM/DL MDM Medical Decision Making Medical Screen Exam Complete: Yes Emergency Medical Condition: Yes Medical Record Reviewed: Yes Differential Diagnosis Abscess, nonspecific mass, lipoma, lymphadenopathy Narrative Course 52-year-old male with a mass to the posterior left lower scalp that developed over the past 2 days. The mass is soft and tender to touch. Areas without erythema. He is afebrile and nontoxic-appearing. She denies fever, vomiting. Patient will be moved to a medical bed for further treatment and evaluation. I spoke with Dr. Crespo and report was given. See her note for final patient disposition. Scripts Amoxicillin 500 Mg [id number] Mg PO TID 7 Days Ref 0 Prov:Veronika Crespo MD 03/16/17 Taty Grubbs March 16, 2017 13:15
[2017-03-16 14:08] LABS: AUTOMATED NEUTROPHIL # 7.8 TH/MM3 (1.8-7.7); BASOPHIL % 0.3 % (0.0-2.0); EOSINOPHIL # 0.1 TH/MM3 (0-0.4); EOSINOPHIL % 1.5 % (0.0-4.0); HEMATOCRIT 36.7 % (39.0-51.0); HEMO FLAGS DIFF FINAL; LYMPH % 10.4 % (9.0-44.0); MEAN CELL VOLUME 88.2 FL (80.0-100.0); MONO % 7.9 % (0.0-8.0); NEUT % 79.9 % (16.0-70.0); PLATELET COUNT 204 TH/MM3 (150-450); RED BLOOD COUNT 4.17 MIL/MM3 (4.50-5.90); RED CELL DISTRIBUTION WIDTH 14.8 % (11.6-17.2); WHITE BLOOD COUNT 9.8 TH/MM3 (4.0-11.0)
[2017-03-16 14:23] LABS: ANION GAP 7 MEQ/L (5-15); AST (GOT) 18 U/L (15-37); BICARBONATE 27.9 MEQ/L (21.0-32.0); BLOOD UREA NITROGEN 14 MG/DL (7-18); CHLORIDE 108 MEQ/L (98-107); GLOMERULAR FILTRATION RATE 141 ML/MIN (>89); SODIUM (NA) 143 MEQ/L (136-145)
[2017-03-16 14:26] LABS: ALKALINE PHOSPHATASE 73 U/L (45-117); ALT (GPT) 23 U/L (12-78); TOTAL BILIRUBIN ADULT 0.7 MG/DL (0.2-1.0)
[2017-03-16] MEDS ORDERED: IOHEXOL 350 MG/ML 10 ML VIAL (for RAD DIAG) IV ONE (14:39)
--- NOTE | 2017-03-16 15:15 | RADRPT ---
EXAM DATE/TIME: 03/16/2017 14:37 [facility] COMPARISON: No previous studies available for comparison. INDICATIONS : Lump on posterior neck. IV CONTRAST: 65 cc Omnipaque 350 (iohexol) IV RADIATION DOSE: 14.58 CTDIvol (mGy) MEDICAL HISTORY : Hypertension. SURGICAL HISTORY : Gastric bypass. Colostomy. ENCOUNTER: Initial ACUITY: 1 day PAIN SCALE: 3/10 LOCATION: Bilateral posterior neck TECHNIQUE: Volumetric scanning of the neck was performed. Using automated exposure control and adjustment of th e mA and/or kV according to patient size, radiation dose was kept as low as reasonably achievable to obtain optimal diagnostic quality images. FINDINGS: There is a small subcutaneous nodule posteriorly left neck measuring 1 cm, nonspecific but most likel y inflammatory. Nasopharynx and oropharynx are unremarkable. There is no radiographically significant adenopathy. Scattered small 5 - 6 mm nodes are seen in both the right and left neck. There is a dominant mass in the left lobe of the thyroid measuring 2.8 cm with a retrosternal component. CONCLUSION: 1. Nonspecific 1 cm inflammatory mass posteriorly left neck. 2. Dominant thyroid nodule on the left that does into the substernal region. Percutaneous biopsy an d followup would be suggested. Eren Rodrigez MD FACR on March 16, 2017 at 15:02 Board Certified Radiologist. This report was verified electronically.
[2017-03-16] MEDS ORDERED: AMOX500C PO (15:34)
--- NOTE | 2017-03-16 15:34 | PD ---
Physical Exam Narrative Patient is a 52-year-old male, originally seen in fast track, complaining of a mass to the back of his head. He says he has had the mass is entirely within the past 2 days it is become more swollen. He denies any injury. He has not had fever or chills. There is no drainage. Exam shows soft 2 cm mass at the left side of the base of the occiput. There is no erythema, and is not tender to touch. There is no drainage. Data Data Last Documented VS Vital Signs Date Time Temp Pulse Resp B/P Pulse Ox O2 Delivery O2 Flow Rate FiO2 03/16/17 12:53 98.2 80 16 150/95 99 Orders Isolation 08,20 (03/16/17 13:25) Complete Blood Count With Diff (03/16/17 13:39) Comprehensive Metabolic Panel (03/16/17 13:39) Ct Soft Tiss Neck W Iv Cont (03/16/17 ) Iohexol 350 Inj (Omnipaque 350 Inj) (03/16/17 14:39) Labs Laboratory Tests Test 03/16/17 13:45 White Blood Count 9.8 TH/MM3 Red Blood Count 4.17 MIL/MM3 Hemoglobin 12.5 GM/DL Hematocrit 36.7 % Mean Corpuscular Volume 88.2 FL Mean Corpuscular Hemoglobin 30.0 PG Mean Corpuscular Hemoglobin 34.0 % Concent Red Cell Distribution Width 14.8 % Platelet Count 204 TH/MM3 Mean Platelet Volume 8.4 FL Neutrophils (%) (Auto) 79.9 % Lymphocytes (%) (Auto) 10.4 % Monocytes (%) (Auto) 7.9 % Eosinophils (%) (Auto) 1.5 % Basophils (%) (Auto) 0.3 % Neutrophils # (Auto) 7.8 TH/MM3 Lymphocytes # (Auto) 1.0 TH/MM3 Monocytes # (Auto) 0.8 TH/MM3 Eosinophils # (Auto) 0.1 TH/MM3 Basophils # (Auto) 0.0 TH/MM3 CBC Comment DIFF FINAL Differential Comment Sodium Level 143 MEQ/L Potassium Level 4.0 MEQ/L Chloride Level 108 MEQ/L Carbon Dioxide Level 27.9 MEQ/L Anion Gap 7 MEQ/L Blood Urea Nitrogen 14 MG/DL Creatinine 0.60 MG/DL Estimat Glomerular Filtration 141 ML/MIN Rate Random Glucose 97 MG/DL Calcium Level 8.6 MG/DL Total Bilirubin 0.7 MG/DL Aspartate Amino Transf 18 U/L (AST/SGOT) Alanine Aminotransferase 23 U/L (ALT/SGPT) Alkaline Phosphatase 73 U/L Total Protein 6.4 GM/DL Albumin 3.4 GM/DL [facility] Supervised Visit with AIDEN: No Narrative Course Patient has not had any symptoms of fever, weight loss, night sweats. Labs sent show no acute abnormalities. CT of the neck shows an inflammatory mass as well as a thyroid nodule several lymph nodes in the neck. Patient advised of these results. We'll try a course of amoxicillin to reduce the size of the inflammatory mass. Patient advised to needs to follow-up with a primary care physician to assess for resolution of this mass. He also needs to have a biopsy performed of the thyroid nodule. Patient advised he should see his doctor as soon as possible. Advised to return to the ED as needed for any worsening symptoms. Diagnosis Primary Impression: Neck mass Additional Impression: Thyroid nodule Patient Instructions: General Instructions, Soft Tissue Mass (ED), Thyroid Nodules (ED) Additional Instruction: Follow up with a primary care physician for evaluation of your mass and thyroid nodule. You need further testing to rule out malignancy. Take the antibiotics. Return to the ED as needed for any worsening symptoms. Scripts Amoxicillin 500 Mg [id number] Mg PO TID 7 Days Ref 0 Prov:Veronika Crespo MD 03/16/17 Disposition: 01 DISCHARGE HOME Condition: Stable Veronika Crespo MD March 16, 2017 15:34
== END 2017-03-16 15:49 | disposition home or self-care (01) ==
LOC: NEPD 12:51
DX: R22.1 Localized swelling, mass and lump, neck (principal); E04.1 Nontoxic single thyroid nodule; I10 Essential (primary) hypertension
CPT/HCPCS: 70491; 80053; 85025; 99285; Q9967